=== PATIENT | male | born 1935 | race Caucasian/White ===

== ENCOUNTER → 2017-06-27 | Outpatient (CLI) | payer MEDICARE, OTHER ==
[2016-05-02 09:39] VITALS: BP 128/70
[~2017-06-27] MED LIST: ACTOS45 MG PO; AMITRIPTYLINE H10 M3 PO; CARDI-OMEGA1000 MG PO; FA-80.8 MG PO; GOOD SENSE ASPI81 M1 PO; HYZAAR 50-12.1 UDTAB PO; LIDODERM5% TP; METFORMIN500 MG PO; PARAFON FORTE500 MG PO; TENORMIN25 MG PO; TRIAMCINOLONE0.11 TP; ULTRAM50 MG PO
== END ==
LOC: LAB 11:51
DX: E10.3291 Type 1 diabetes mellitus with mild nonproliferative diabetic retinopathy without macular edema, right eye (principal)

== ENCOUNTER → 2017-07-12 | Outpatient (CLI) | payer MEDICARE, OTHER ==
[2016-05-02 09:39] VITALS: BP 128/70
[2017-07-12 10:45] LABS: EOS # 0.2 (0.04-0.40); HEMATOCRIT 38.4 % (42.0-52.0); HEMOGLOBIN 12.5 g/dL (13.5-18.0); LYMPH# 1.6 (1.50-4.00); MEAN CELL VOLUME 95 fl (78-100); MEAN CORPUSCULAR HEMOGLOBIN 31 pg (27-31); MEAN CORPUSCULAR HGB CONC 33 g/dL (33-37); MEAN PLATELET VOLUME 10.6 fl (7.4-10.4); MONO # 0.7 (0.20-0.80); NEU # 3.5 (1.40-6.50); PLATELET COUNT 126 K/mm3 (130-400); RED BLOOD COUNT 4.06 M/mm3 (4.20-5.60); RED CELL DISTRIBUTION WIDTH 14.4 % (11.5-14.5); WHITE BLOOD COUNT 6.1 K/mm3 (4.8-10.8)
[2017-07-12 11:42] LABS: ALBUMIN 3.9 g/dL (3.5-5.0); BUN/CREATININE RATIO 23.8 (6.0-26.0); CALCIUM 8.9 mg/dL (8.4-10.2); POTASSIUM 4.6 mmol/L (3.6-5.0); TOTAL BILIRUBIN 1.3 mg/dL (0.2-1.3); TOTAL PROTEIN 7.3 g/dL (6.3-8.2)
[2017-07-12 12:44] LABS: ERYTHROCYTE SEDIMENTATION RATE 23 mm/hr (0-20)
[2017-07-12 23:35] LABS: TESTOSTERONE 379 ng/dL (221-716)
== END ==
LOC: LAB 10:16
PROVIDERS: Internal Medicine
DX: Z12.5 Encounter for screening for malignant neoplasm of prostate (principal); Z12.11 Encounter for screening for malignant neoplasm of colon; E11.9 Type 2 diabetes mellitus without complications; I48.0 Paroxysmal atrial fibrillation; E78.5 Hyperlipidemia, unspecified; N52.9 Male erectile dysfunction, unspecified; Z88.8 Allergy status to other drugs, medicaments and biological substances

== ENCOUNTER → 2017-07-16 | Outpatient (CLI) | payer MEDICARE, OTHER ==
[2016-05-02 09:39] VITALS: BP 128/70
== END ==
LOC: RAD 09:00
DX: I77.811 Abdominal aortic ectasia (principal)

== ENCOUNTER → 2018-05-02 | Outpatient (CLI) | payer MEDICARE, OTHER ==
[2016-05-02 09:39] VITALS: BP 128/70
[2018-05-02 09:23] LABS: EOS # 0.5 (0.04-0.40); HEMATOCRIT 39.9 % (42.0-52.0); HEMOGLOBIN 13.2 g/dL (13.5-18.0); LYMPH# 2.4 (1.50-4.00); MEAN CELL VOLUME 94 fl (78-100); MEAN CORPUSCULAR HEMOGLOBIN 31 pg (27-31); MEAN CORPUSCULAR HGB CONC 33 g/dL (33-37); MEAN PLATELET VOLUME 10.6 fl (7.4-10.4); MONO # 0.8 (0.20-0.80); NEU # 3.3 (1.40-6.50); PLATELET COUNT 153 K/mm3 (130-400); RED BLOOD COUNT 4.23 M/mm3 (4.20-5.60); RED CELL DISTRIBUTION WIDTH 14.5 % (11.5-14.5)
[2018-05-02 09:30] LABS: ALBUMIN 4.5 g/dL (3.5-5.0); CALCIUM 9.2 mg/dL (8.4-10.2); POTASSIUM 4.9 mmol/L (3.6-5.0); TOTAL BILIRUBIN 1.2 mg/dL (0.2-1.3); TOTAL PROTEIN 8.3 g/dL (6.3-8.2)
[2018-05-02 09:53] LABS: EOS % 6.4 % (0.0-4.0)
[2018-05-02 10:27] LABS: ERYTHROCYTE SEDIMENTATION RATE 40 mm/hr (0-20)
[2018-05-03 00:26] LABS: TESTOSTERONE 235 ng/dL (221-716)
== END ==
LOC: LAB 09:05
PROVIDERS: Internal Medicine
DX: E04.1 Nontoxic single thyroid nodule (principal); D61.818 Other pancytopenia; E11.40 Type 2 diabetes mellitus with diabetic neuropathy, unspecified; K90.9 Intestinal malabsorption, unspecified; N52.9 Male erectile dysfunction, unspecified

== ENCOUNTER → 2018-05-16 | Outpatient (CLI) | payer MEDICARE, OTHER ==
[~2018-05-16] VITALS: Ht 177.8 cm; Wt 112.7 kg
[2018-05-16 13:45] VITALS: BP 122/70
[2018-05-16 14:26] LABS: URINE APPEARANCE CLEAR; URINE COLOR YELLOW
[2018-05-16 14:27] LABS: URINE BILIRUBIN NEGATIVE (NEGATIVE); URINE BLOOD TRACE (NEGATIVE); URINE GLUCOSE NEGATIVE (NEGATIVE); URINE KETONE NEGATIVE (NEGATIVE); URINE LEUKOCYTE ESTERASE NEGATIVE (NEGATIVE); URINE NITRATE NEGATIVE (NEGATIVE); URINE PROTEIN(semi-quant) TRACE mg/dL (NEGATIVE); URINE UROBILINOGEN NORMAL (NORMAL); URINE WBC 0-1 /hpf (0-3)
[2018-05-16 16:14] LABS: PARTIAL THROMBOPLASTIN TIME 26.5 SECONDS (21.0-32.0); PROTHROMBIN TIME 9.7 SECONDS (9.0-12.0)
[2018-05-17 00:28] LABS: LUTENIZING HORMONE 1.1 mIU/mL (0.6-12.1); PROLACTIN 7.7 ng/mL (3.5-19.4)
== END ==
LOC: AMSURD 13:05
PROVIDERS: Internal Medicine
DX: Z01.818 Encounter for other preprocedural examination (principal); J32.0 Chronic maxillary sinusitis; E29.1 Testicular hypofunction

== ENCOUNTER → 2018-08-06 | Outpatient (CLI) | payer MEDICARE, OTHER ==
[2018-05-16 13:45] VITALS: BP 122/70
[2018-08-06 15:45] LABS: EOS # 0.2 (0.04-0.40); HEMATOCRIT 43.5 % (42.0-52.0); HEMOGLOBIN 13.9 g/dL (13.5-18.0); LYMPH# 1.9 (1.50-4.00); MEAN CELL VOLUME 98 fl (78-100); MEAN CORPUSCULAR HEMOGLOBIN 31 pg (27-31); MEAN CORPUSCULAR HGB CONC 32 g/dL (33-37); MEAN PLATELET VOLUME 10.7 fl (7.4-10.4); MONO # 0.8 (0.20-0.80); NEU # 4.3 (1.40-6.50); PLATELET COUNT 105 K/mm3 (130-400); RED BLOOD COUNT 4.46 M/mm3 (4.20-5.60); RED CELL DISTRIBUTION WIDTH 15.6 % (11.5-14.5); WHITE BLOOD COUNT 7.3 K/mm3 (4.8-10.8)
[2018-08-06 16:21] LABS: ALBUMIN 3.8 g/dL (3.5-5.0); CALCIUM 8.4 mg/dL (8.4-10.2); POTASSIUM 4.3 mmol/L (3.6-5.0); TOTAL BILIRUBIN 0.9 mg/dL (0.2-1.3); TOTAL PROTEIN 7.2 g/dL (6.3-8.2)
== END ==
LOC: LAB 14:36
PROVIDERS: Internal Medicine
DX: E29.1 Testicular hypofunction (principal); E11.9 Type 2 diabetes mellitus without complications; D61.818 Other pancytopenia

== ENCOUNTER → 2018-08-18 | Outpatient (CLI) | payer MEDICARE, OTHER ==
[2018-05-16 13:45] VITALS: BP 122/70
[2018-08-18 15:46] LABS: ALBUMIN 4.2 g/dL (3.5-5.0); CALCIUM 8.8 mg/dL (8.4-10.2); POTASSIUM 4.3 mmol/L (3.6-5.0); TOTAL BILIRUBIN 1.1 mg/dL (0.2-1.3); TOTAL PROTEIN 8.1 g/dL (6.3-8.2)
== END ==
LOC: LAB 15:20
PROVIDERS: Internal Medicine
DX: Z01.812 Encounter for preprocedural laboratory examination (principal); E29.1 Testicular hypofunction; M15.0 Primary generalized (osteo)arthritis; E11.9 Type 2 diabetes mellitus without complications

== ENCOUNTER → 2018-08-29 | Outpatient (CLI) | payer MEDICARE, OTHER ==
[2018-05-16 13:45] VITALS: BP 122/70
[2018-08-29 12:19] LABS: CALCIUM 8.8 mg/dL (8.4-10.2)
== END ==
LOC: LAB 11:43
PROVIDERS: Internal Medicine
DX: E11.9 Type 2 diabetes mellitus without complications (principal)

== ENCOUNTER → 2019-02-16 | Outpatient (CLI) | payer MEDICARE, OTHER ==
[2018-05-16 13:45] VITALS: BP 122/70
[2019-02-16 15:39] LABS: ALBUMIN 3.9 g/dL (3.4-4.8)
[2019-02-16 15:40] LABS: POTASSIUM 3.1 mmol/L (3.5-5.1)
[2019-02-16 15:41] LABS: CALCIUM 8.9 mg/dL (8.3-10.5)
[2019-02-16 15:42] LABS: TOTAL PROTEIN 7.9 g/dL (6.2-8.1)
[2019-02-16 15:44] LABS: TOTAL BILIRUBIN 1.2 mg/dL (0.2-1.2)
[2019-02-16 17:23] LABS: HEMATOCRIT 48.4 % (42.0-52.0); HEMOGLOBIN 16.4 g/dL (13.5-18.0); MEAN CELL VOLUME 94 fl (78-100); MEAN CORPUSCULAR HEMOGLOBIN 32 pg (27-31); MEAN CORPUSCULAR HGB CONC 34 g/dL (33-37); MEAN PLATELET VOLUME 11.5 fl (7.4-10.4); PLATELET COUNT 108 K/mm3 (130-400); RED BLOOD COUNT 5.14 M/mm3 (4.20-5.60); RED CELL DISTRIBUTION WIDTH 14.4 % (11.5-14.5); WHITE BLOOD COUNT 6.2 K/mm3 (4.8-10.8)
[2019-02-16 17:37] LABS: BAND 2 % (0-10); LYMPHOCYTE 24 % (20-51); MONOCYTE 14 % (3-10); NEUTROPHILS 55 % (42-75)
== END ==
LOC: LAB 15:01
PROVIDERS: Internal Medicine
DX: Z01.818 Encounter for other preprocedural examination (principal); D61.818 Other pancytopenia; K90.9 Intestinal malabsorption, unspecified; E11.40 Type 2 diabetes mellitus with diabetic neuropathy, unspecified; M15.0 Primary generalized (osteo)arthritis

== ENCOUNTER → 2019-03-23 | Outpatient (CLI) | payer MEDICARE, OTHER ==
[2018-05-16 13:45] VITALS: BP 122/70
== END ==
LOC: MAMMO 07:15 → RAD 16:39
DX: N62 Hypertrophy of breast (principal); N63.0 Unspecified lump in unspecified breast

== ENCOUNTER → 2019-06-08 | Outpatient (CLI) | payer MEDICARE, OTHER ==
[2018-05-16 13:45] VITALS: BP 122/70
[2019-06-08 09:45] LABS: HEMATOCRIT 41.5 % (42.0-52.0); HEMOGLOBIN 13.8 g/dL (13.5-18.0); MEAN CELL VOLUME 98 fl (78-100); MEAN CORPUSCULAR HEMOGLOBIN 33 pg (27-31); MEAN CORPUSCULAR HGB CONC 33 g/dL (33-37); MEAN PLATELET VOLUME 10.4 fl (7.4-10.4); PLATELET COUNT 175 K/mm3 (130-400); RED BLOOD COUNT 4.22 M/mm3 (4.20-5.60)
[2019-06-08 09:54] LABS: ALBUMIN 3.7 g/dL (3.4-4.8); POTASSIUM 4.8 mmol/L (3.5-5.1)
[2019-06-08 09:55] LABS: CALCIUM 9.1 mg/dL (8.3-10.5)
[2019-06-08 09:56] LABS: TOTAL PROTEIN 7.8 g/dL (6.2-8.1)
[2019-06-08 09:58] LABS: TOTAL BILIRUBIN 0.8 mg/dL (0.2-1.2)
[2019-06-08 10:01] LABS: LYMPHOCYTE 24 % (20-51); MONOCYTE 9 % (3-10); NEUTROPHILS 65 % (42-75)
[2019-06-08 10:04] LABS: MAGNESIUM 2.5 mg/dL (1.60-2.60)
== END ==
LOC: LAB 09:27
PROVIDERS: Internal Medicine
DX: Z01.818 Encounter for other preprocedural examination (principal); E11.40 Type 2 diabetes mellitus with diabetic neuropathy, unspecified; K90.9 Intestinal malabsorption, unspecified; M15.0 Primary generalized (osteo)arthritis; D61.818 Other pancytopenia; R97.20 Elevated prostate specific antigen [PSA]

== ENCOUNTER → 2019-06-15 | Outpatient (CLI) | payer MEDICARE, OTHER ==
[2018-05-16 13:45] VITALS: BP 122/70
[2019-06-15 09:17] LABS: EOS # 0.2 (0.04-0.40); HEMATOCRIT 43.2 % (42.0-52.0); HEMOGLOBIN 14.3 g/dL (13.5-18.0); LYMPH# 1.8 (1.50-4.00); MEAN CELL VOLUME 98 fl (78-100); MEAN CORPUSCULAR HEMOGLOBIN 32 pg (27-31); MEAN CORPUSCULAR HGB CONC 33 g/dL (33-37); MONO # 0.8 (0.20-0.80); PLATELET COUNT 184 K/mm3 (130-400); RED BLOOD COUNT 4.42 M/mm3 (4.20-5.60); RED CELL DISTRIBUTION WIDTH 15.7 % (11.5-14.5); WHITE BLOOD COUNT 7.7 K/mm3 (4.8-10.8)
[2019-06-15 09:37] LABS: ALBUMIN 3.7 g/dL (3.4-4.8)
[2019-06-15 09:38] LABS: POTASSIUM 4.2 mmol/L (3.5-5.1)
[2019-06-15 09:39] LABS: CALCIUM 9.1 mg/dL (8.3-10.5)
[2019-06-15 09:40] LABS: TOTAL PROTEIN 7.8 g/dL (6.2-8.1)
[2019-06-15 09:42] LABS: TOTAL BILIRUBIN 0.6 mg/dL (0.2-1.2)
[2019-06-15 09:47] LABS: MAGNESIUM 1.77 mg/dL (1.60-2.60)
[2019-06-15 10:09] LABS: URINE APPEARANCE CLEAR; URINE BILIRUBIN NEGATIVE (NEGATIVE); URINE BLOOD 50 ery/uL (NEGATIVE); URINE COLOR YELLOW; URINE GLUCOSE NEGATIVE (NEGATIVE); URINE KETONE NEGATIVE (NEGATIVE); URINE LEUKOCYTE ESTERASE NEGATIVE (NEGATIVE); URINE MUCUS PRESENT (NOT PRESENT); URINE NITRATE NEGATIVE (NEGATIVE); URINE PROTEIN(semi-quant) TRACE mg/dL (NEGATIVE); URINE UROBILINOGEN NORMAL (NORMAL); URINE WBC 0-1 /hpf (0-3)
[2019-06-15 10:17] LABS: PROTHROMBIN TIME 10.5 SECONDS (9.0-12.0)
[2019-06-15 12:56] LABS: PARTIAL THROMBOPLASTIN TIME 25.5 SECONDS (21.0-32.0)
== END ==
LOC: AMSURD 09:00
PROVIDERS: Internal Medicine
DX: Z01.818 Encounter for other preprocedural examination (principal); J32.9 Chronic sinusitis, unspecified

== ENCOUNTER → 2019-06-16 | Outpatient (CLI) | payer MEDICARE, OTHER ==
[2018-05-16 13:45] VITALS: BP 122/70
[2019-06-16 14:50] LABS: POTASSIUM 4.3 mmol/L (3.5-5.1)
[2019-06-16 14:51] LABS: CALCIUM 9.1 mg/dL (8.3-10.5)
== END ==
LOC: LAB 14:26
PROVIDERS: Internal Medicine
DX: Z01.818 Encounter for other preprocedural examination (principal); E11.9 Type 2 diabetes mellitus without complications; I87.2 Venous insufficiency (chronic) (peripheral)

== ENCOUNTER → 2019-07-16 | Outpatient (CLI) | payer MEDICARE, OTHER ==
[2018-05-16 13:45] VITALS: BP 122/70
[2019-07-16 12:04] LABS: ALBUMIN 3.6 g/dL (3.4-4.8); POTASSIUM 4.5 mmol/L (3.5-5.1)
[2019-07-16 12:05] LABS: CALCIUM 8.4 mg/dL (8.3-10.5)
[2019-07-16 12:06] LABS: TOTAL PROTEIN 7.4 g/dL (6.2-8.1)
[2019-07-16 12:08] LABS: TOTAL BILIRUBIN 0.6 mg/dL (0.2-1.2)
== END ==
LOC: LAB 11:36
PROVIDERS: Internal Medicine
DX: E11.9 Type 2 diabetes mellitus without complications (principal); I87.2 Venous insufficiency (chronic) (peripheral)

== ENCOUNTER → 2019-09-14 | Outpatient (CLI) | payer MEDICARE, OTHER ==
[2018-05-16 13:45] VITALS: BP 122/70
[2019-09-14 16:29] LABS: BASO # 0.1 (0.02-0.10); EOS # 0.5 (0.04-0.40); HEMATOCRIT 43.3 % (42.0-52.0); HEMOGLOBIN 14.1 g/dL (13.5-18.0); LYMPH# 1.8 (1.50-4.00); MEAN CELL VOLUME 100 fl (78-100); MEAN CORPUSCULAR HEMOGLOBIN 33 pg (27-31); MEAN CORPUSCULAR HGB CONC 33 g/dL (33-37); MEAN PLATELET VOLUME 11.1 fl (7.4-10.4); MONO # 0.6 (0.20-0.80); NEU # 3.3 (1.40-6.50); PLATELET COUNT 109 K/mm3 (130-400); RED BLOOD COUNT 4.34 M/mm3 (4.20-5.60); RED CELL DISTRIBUTION WIDTH 13.8 % (11.5-14.5); WHITE BLOOD COUNT 6.2 K/mm3 (4.8-10.8)
[2019-09-14 16:30] LABS: EOS % 7.3 % (0.0-4.0)
[2019-09-14 16:31] LABS: ALBUMIN 3.8 g/dL (3.4-4.8)
[2019-09-14 16:32] LABS: POTASSIUM 4.3 mmol/L (3.5-5.1)
[2019-09-14 16:33] LABS: CALCIUM 8.7 mg/dL (8.3-10.5)
[2019-09-14 16:34] LABS: TOTAL PROTEIN 7.6 g/dL (6.2-8.1)
[2019-09-14 16:40] LABS: MAGNESIUM 1.42 mg/dL (1.60-2.60)
[2019-09-15 17:09] LABS: TESTOSTERONE 1283 ng/dL (221-716)
== END ==
LOC: LAB 11:35
PROVIDERS: Internal Medicine
DX: Z01.818 Encounter for other preprocedural examination (principal); D61.818 Other pancytopenia; E11.49 Type 2 diabetes mellitus with other diabetic neurological complication; K90.9 Intestinal malabsorption, unspecified; E04.1 Nontoxic single thyroid nodule; J32.9 Chronic sinusitis, unspecified; I87.2 Venous insufficiency (chronic) (peripheral); E29.1 Testicular hypofunction; R97.20 Elevated prostate specific antigen [PSA]

== ENCOUNTER → 2019-11-13 | Outpatient (CLI) | payer MEDICARE, OTHER ==
[2018-05-16 13:45] VITALS: BP 122/70
[2019-11-13 11:55] LABS: ALBUMIN 3.9 g/dL (3.4-4.8); POTASSIUM 3.5 mmol/L (3.5-5.1)
[2019-11-13 11:58] LABS: TOTAL PROTEIN 7.9 g/dL (6.2-8.1)
[2019-11-13 11:59] LABS: TOTAL BILIRUBIN 1.3 mg/dL (0.2-1.2)
== END ==
LOC: LAB 11:26
PROVIDERS: Internal Medicine
DX: E29.1 Testicular hypofunction (principal); E11.9 Type 2 diabetes mellitus without complications; I48.91 Unspecified atrial fibrillation

== ENCOUNTER → 2019-11-19 | Outpatient (CLI) | payer MEDICARE, OTHER ==
[2018-05-16 13:45] VITALS: BP 122/70
== END ==
LOC: RAD 11:42
DX: G31.9 Degenerative disease of nervous system, unspecified (principal); I67.82 Cerebral ischemia; I48.91 Unspecified atrial fibrillation; G47.00 Insomnia, unspecified

== ENCOUNTER → 2020-02-04 | Outpatient (CLI) | payer MEDICARE, OTHER ==
[2018-05-16 13:45] VITALS: BP 122/70
[2020-02-04 11:44] LABS: HEMATOCRIT 41.7 % (42.0-52.0); HEMOGLOBIN 14.1 g/dL (13.5-18.0); MEAN CELL VOLUME 96 fl (78-100); MEAN CORPUSCULAR HEMOGLOBIN 33 pg (27-31); MEAN CORPUSCULAR HGB CONC 34 g/dL (33-37); MEAN PLATELET VOLUME 10.5 fl (7.4-10.4); PLATELET COUNT 132 K/mm3 (130-400); RED BLOOD COUNT 4.34 M/mm3 (4.20-5.60); RED CELL DISTRIBUTION WIDTH 13.9 % (11.5-14.5); WHITE BLOOD COUNT 8.4 K/mm3 (4.8-10.8)
[2020-02-04 11:53] LABS: ALBUMIN 4.1 g/dL (3.4-4.8); POTASSIUM 3.3 mmol/L (3.5-5.1)
[2020-02-04 11:54] LABS: CALCIUM 9.2 mg/dL (8.3-10.5)
[2020-02-04 11:55] LABS: TOTAL PROTEIN 7.9 g/dL (6.2-8.1)
[2020-02-04 11:57] LABS: TOTAL BILIRUBIN 0.7 mg/dL (0.2-1.2)
[2020-02-04 12:03] LABS: MAGNESIUM 1.8 mg/dL (1.60-2.60)
[2020-02-04 12:09] LABS: LYMPHOCYTE 33 % (20-51); MONOCYTE 10 % (3-10); NEUTROPHILS 52 % (42-75)
[2020-02-04 23:49] LABS: TESTOSTERONE 1043 ng/dL (221-716)
== END ==
LOC: LAB 11:33
PROVIDERS: Internal Medicine
DX: Z01.818 Encounter for other preprocedural examination (principal); E11.9 Type 2 diabetes mellitus without complications; K90.9 Intestinal malabsorption, unspecified; M15.0 Primary generalized (osteo)arthritis; E29.1 Testicular hypofunction

== ENCOUNTER 2020-03-04 17:13 | Emergency (ER) | payer MEDICARE, OTHER ==
[2020-03-04 18:01] LABS: BASO # 0.1 (0.02-0.10); EOS # 0.5 (0.04-0.40); HEMATOCRIT 39.7 % (42.0-52.0); HEMOGLOBIN 13.3 g/dL (13.5-18.0); LYMPH# 1.9 (1.50-4.00); MEAN CELL VOLUME 96 fl (78-100); MEAN CORPUSCULAR HEMOGLOBIN 32 pg (27-31); MEAN CORPUSCULAR HGB CONC 34 g/dL (33-37); MEAN PLATELET VOLUME 10.6 fl (7.4-10.4); MONO # 0.8 (0.20-0.80); NEU # 3.5 (1.40-6.50); PLATELET COUNT 136 K/mm3 (130-400); RED BLOOD COUNT 4.12 M/mm3 (4.20-5.60); RED CELL DISTRIBUTION WIDTH 14.4 % (11.5-14.5); WHITE BLOOD COUNT 6.7 K/mm3 (4.8-10.8)
[2020-03-04 18:02] LABS: EOS % 7.1 % (0.0-4.0)
[2020-03-04 18:11] LABS: POTASSIUM 3.6 mmol/L (3.5-5.1)
[2020-03-04 18:12] LABS: CALCIUM 8.6 mg/dL (8.3-10.5)
[2020-03-04 18:32] LABS: URINE APPEARANCE CLEAR; URINE BILIRUBIN NEGATIVE (NEGATIVE); URINE BLOOD NEGATIVE (NEGATIVE); URINE COLOR YELLOW; URINE GLUCOSE NEGATIVE (NEGATIVE); URINE KETONE NEGATIVE (NEGATIVE); URINE LEUKOCYTE ESTERASE NEGATIVE (NEGATIVE); URINE MUCUS PRESENT (NOT PRESENT); URINE NITRATE NEGATIVE (NEGATIVE); URINE PROTEIN(semi-quant) 1+ mg/dL (NEGATIVE); URINE UROBILINOGEN NORMAL (NORMAL)
[2020-03-04 19:43] VITALS: BP 173/92
== END 2020-03-04 19:43 | disposition home or self-care (01) ==
LOC: ED 17:13
PROVIDERS: Family Medicine
DX: N13.9 Obstructive and reflux uropathy, unspecified (principal); E86.0 Dehydration; E11.22 Type 2 diabetes mellitus with diabetic chronic kidney disease; I12.9 Hypertensive chronic kidney disease with stage 1 through stage 4 chronic kidney disease, or unspecified chronic kidney disease; N18.30 Chronic kidney disease, stage 3 unspecified; F17.290 Nicotine dependence, other tobacco product, uncomplicated; Z90.79 Acquired absence of other genital organ(s); Z79.82 Long term (current) use of aspirin; Z79.84 Long term (current) use of oral hypoglycemic drugs

== ENCOUNTER → 2020-05-05 | Outpatient (CLI) | payer MEDICARE, OTHER ==
[2020-05-05 11:54] LABS: EOS # 0.4 (0.04-0.40); HEMATOCRIT 40.5 % (42.0-52.0); LYMPH# 1.6 (1.50-4.00); MEAN CELL VOLUME 101 fl (78-100); MEAN CORPUSCULAR HEMOGLOBIN 32 pg (27-31); MEAN CORPUSCULAR HGB CONC 32 g/dL (33-37); MONO # 0.8 (0.20-0.80); NEU # 3.7 (1.40-6.50); PLATELET COUNT 109 K/mm3 (130-400); RED BLOOD COUNT 4.03 M/mm3 (4.20-5.60); RED CELL DISTRIBUTION WIDTH 14.7 % (11.5-14.5); WHITE BLOOD COUNT 6.5 K/mm3 (4.8-10.8)
[2020-05-05 12:00] LABS: EOS % 6.3 % (0.0-4.0)
[2020-05-05 12:03] LABS: ALBUMIN 3.7 g/dL (3.4-4.8); POTASSIUM 4.4 mmol/L (3.5-5.1)
[2020-05-05 12:04] LABS: CALCIUM 8.8 mg/dL (8.3-10.5)
[2020-05-05 12:07] LABS: TOTAL BILIRUBIN 1.1 mg/dL (0.2-1.2)
[2020-05-05 12:12] LABS: MAGNESIUM 1.69 mg/dL (1.60-2.60)
== END ==
LOC: LAB 11:29
PROVIDERS: Internal Medicine
DX: E11.9 Type 2 diabetes mellitus without complications (principal); E78.5 Hyperlipidemia, unspecified; I48.0 Paroxysmal atrial fibrillation

== ENCOUNTER → 2020-10-17 | Outpatient (CLI) | payer MEDICARE, OTHER ==
[~2020-10-17] MED LIST changes: +ACETAMINOPHEN-H1 TA1 PO; +CEPHALEXIN500 M1 PO; +CYANOCOBAL1000 MCG/1 IM; +CYCLOBENZ5 MG PO; +ELIQUIS5 MG PO; +FISH OIL 1000MG1 CAP PO; +KLONOPIN 1MG1 MG PO; +LIDOCAINE PAIN1 EACH TP; +LOSARTAN POTASS50 M1 PO; +METFORMIN ER500 MG PO; +MS CONTIN 115 MG/TAB PO; +PHARMASSURE FO0.8 MG PO; +SERTRALINE50 MG PO; +SOTALOL HCL120 MG PO; +TESTOSTERO200 MG/1 M IM
[2020-10-17 11:39] LABS: BASO # 0.04 (0.02-0.10); EOS # 0.37 (0.04-0.40); EOS % 6.1 % (0.0-4.0); HEMATOCRIT 35.7 % (42.0-52.0); HEMOGLOBIN 11.9 g/dL (13.5-18.0); LYMPH# 1.64 (1.50-4.00); MEAN CELL VOLUME 97 fl (78-100); MEAN CORPUSCULAR HEMOGLOBIN 32 pg (27-31); MEAN CORPUSCULAR HGB CONC 33 g/dL (33-37); MEAN PLATELET VOLUME 10.9 fl (7.4-10.4); MONO # 0.76 (0.20-0.80); NEU # 3.27 (1.40-6.50); PLATELET COUNT 131 K/mm3 (130-400); RED BLOOD COUNT 3.68 M/mm3 (4.20-5.60); RED CELL DISTRIBUTION WIDTH 13.6 % (11.5-14.5); WHITE BLOOD COUNT 6.1 K/mm3 (4.8-10.8)
[2020-10-17 11:44] LABS: POTASSIUM 4.5 mmol/L (3.5-5.1)
[2020-10-17 11:45] LABS: ALBUMIN 3.9 g/dL (3.4-4.8)
[2020-10-17 11:46] LABS: CALCIUM 8.6 mg/dL (8.3-10.5)
[2020-10-17 11:47] LABS: TOTAL PROTEIN 7.5 g/dL (6.2-8.1)
[2020-10-17 11:49] LABS: TOTAL BILIRUBIN 0.8 mg/dL (0.2-1.2)
[2020-10-17 11:54] LABS: MAGNESIUM 1.74 mg/dL (1.60-2.60)
[2020-10-18 01:24] LABS: TESTOSTERONE 1124 ng/dL (221-716)
== END ==
LOC: LAB 11:12
PROVIDERS: Internal Medicine
DX: Z12.5 Encounter for screening for malignant neoplasm of prostate (principal); E11.9 Type 2 diabetes mellitus without complications; D64.9 Anemia, unspecified; E78.5 Hyperlipidemia, unspecified; E23.7 Disorder of pituitary gland, unspecified

== ENCOUNTER 2020-12-02 18:12 | Emergency (ER) | payer MEDICARE, OTHER ==
[~2020-12-02 18:12] MED LIST changes: -ACETAMINOPHEN-H1 TA1 PO; -CEPHALEXIN500 M1 PO; -CYANOCOBAL1000 MCG/1 IM; -CYCLOBENZ5 MG PO; -ELIQUIS5 MG PO; -FISH OIL 1000MG1 CAP PO; -KLONOPIN 1MG1 MG PO; -LIDOCAINE PAIN1 EACH TP; -LOSARTAN POTASS50 M1 PO; -METFORMIN ER500 MG PO; -MS CONTIN 115 MG/TAB PO; -PHARMASSURE FO0.8 MG PO; -SERTRALINE50 MG PO; -SOTALOL HCL120 MG PO; -TESTOSTERO200 MG/1 M IM
[2020-12-02] MEDS ORDERED: ACETAMINOPHEN-H1 TA1 PO (19:44)
[2020-12-02] MEDS ORDERED: MS CONTIN 115 MG/TAB PO (19:44)
[2020-12-02] MEDS ORDERED: SOTALOL HCL120 MG PO (19:45)
[2020-12-02] MEDS ORDERED: KLONOPIN 1MG1 MG PO (19:45)
[2020-12-02] MEDS ORDERED: ELIQUIS5 MG PO (19:46)
[2020-12-02] MEDS ORDERED: CYCLOBENZ5 MG PO (19:46)
[2020-12-02] MEDS ORDERED: METFORMIN ER500 MG PO (19:46)
[2020-12-02] MEDS ORDERED: SERTRALINE50 MG PO (19:46)
[2020-12-02] MEDS ORDERED: TESTOSTERO200 MG/1 M IM (19:47)
[2020-12-02 20:04] LABS: BASO # 0.04 (0.02-0.10); EOS # 0.44 (0.04-0.40); EOS % 6.7 % (0.0-4.0); HEMATOCRIT 37.7 % (42.0-52.0); HEMOGLOBIN 12.5 g/dL (13.5-18.0); LYMPH# 1.15 (1.50-4.00); MEAN CELL VOLUME 96 fl (78-100); MEAN CORPUSCULAR HEMOGLOBIN 32 pg (27-31); MEAN CORPUSCULAR HGB CONC 33 g/dL (33-37); MEAN PLATELET VOLUME 11.2 fl (7.4-10.4); MONO # 0.65 (0.20-0.80); NEU # 4.24 (1.40-6.50); PLATELET COUNT 107 K/mm3 (130-400); RED BLOOD COUNT 3.94 M/mm3 (4.20-5.60); RED CELL DISTRIBUTION WIDTH 13.6 % (11.5-14.5); WHITE BLOOD COUNT 6.5 K/mm3 (4.8-10.8)
[2020-12-02 20:24] VITALS: BP 168/99
== END 2020-12-02 20:24 | disposition home or self-care (01) ==
LOC: ED 18:12
PROVIDERS: Family Medicine
DX: K06.8 Other specified disorders of gingiva and edentulous alveolar ridge (principal); E11.22 Type 2 diabetes mellitus with diabetic chronic kidney disease; N18.9 Chronic kidney disease, unspecified; E86.0 Dehydration; K08.409 Partial loss of teeth, unspecified cause, unspecified class; I48.91 Unspecified atrial fibrillation; G89.29 Other chronic pain; M54.9 Dorsalgia, unspecified; E11.40 Type 2 diabetes mellitus with diabetic neuropathy, unspecified; Z88.6 Allergy status to analgesic agent; Z79.01 Long term (current) use of anticoagulants; Z79.84 Long term (current) use of oral hypoglycemic drugs

== ENCOUNTER → 2021-01-05 | Outpatient (CLI) | payer MEDICARE, OTHER ==
[~2021-01-05] MED LIST changes: +ACETAMINOPHEN-H1 TA1 PO; +CEPHALEXIN500 M1 PO; +CYANOCOBAL1000 MCG/1 IM; +CYCLOBENZ5 MG PO; +ELIQUIS5 MG PO; +FISH OIL 1000MG1 CAP PO; +KLONOPIN 1MG1 MG PO; +LIDOCAINE PAIN1 EACH TP; +LOSARTAN POTASS50 M1 PO; +METFORMIN ER500 MG PO; +MS CONTIN 115 MG/TAB PO; +PHARMASSURE FO0.8 MG PO; +SERTRALINE50 MG PO; +SOTALOL HCL120 MG PO; +TESTOSTERO200 MG/1 M IM
== END ==
LOC: LAB 17:13
DX: J02.9 Acute pharyngitis, unspecified (principal)

== ENCOUNTER 2021-02-08 18:07 | Observation (INO) | payer MEDICARE, OTHER ==
[~2021-02-08] VITALS: Ht 177.8 cm; Wt 103.6 kg
[~2021-02-08 18:07] MED LIST changes: -CEPHALEXIN500 M1 PO; -CYANOCOBAL1000 MCG/1 IM; -FISH OIL 1000MG1 CAP PO; -LIDOCAINE PAIN1 EACH TP; -LOSARTAN POTASS50 M1 PO; -PHARMASSURE FO0.8 MG PO
[2021-02-08 18:58] LABS: BASO # 0.03 (0.02-0.10); EOS % 1.5 % (0.0-4.0); HEMATOCRIT 39.2 % (42.0-52.0); HEMOGLOBIN 12.5 g/dL (13.5-18.0); LYMPH# 1.47 (1.50-4.00); MEAN CELL VOLUME 96 fl (78-100); MEAN CORPUSCULAR HEMOGLOBIN 31 pg (27-31); MEAN CORPUSCULAR HGB CONC 32 g/dL (33-37); MEAN PLATELET VOLUME 10.9 fl (7.4-10.4); MONO # 0.89 (0.20-0.80); NEU # 4.26 (1.40-6.50); PLATELET COUNT 140 K/mm3 (130-400); RED CELL DISTRIBUTION WIDTH 14.2 % (11.5-14.5); WHITE BLOOD COUNT 6.8 K/mm3 (4.8-10.8)
[2021-02-08 19:10] LABS: ALBUMIN 3.8 g/dL (3.4-4.8); POTASSIUM 4.8 mmol/L (3.5-5.1)
[2021-02-08 19:13] LABS: TOTAL PROTEIN 8.3 g/dL (6.2-8.1)
[2021-02-08 19:14] LABS: TOTAL BILIRUBIN 2.1 mg/dL (0.2-1.2)
[2021-02-08 19:35] LABS: PROTHROMBIN TIME 11.5 SECONDS (9.0-12.0)
[2021-02-08 19:57] LABS: URINE APPEARANCE HAZY; URINE BILIRUBIN NEGATIVE (NEGATIVE); URINE BLOOD 250 ery/uL (NEGATIVE); URINE COLOR YELLOW; URINE GLUCOSE NEGATIVE (NEGATIVE); URINE KETONE 1+ (NEGATIVE); URINE LEUKOCYTE ESTERASE NEGATIVE (NEGATIVE); URINE NITRATE NEGATIVE (NEGATIVE); URINE PROTEIN(semi-quant) 3+ mg/dL (NEGATIVE); URINE UROBILINOGEN NORMAL (NORMAL)
[2021-02-08 19:58] LABS: URINE MUCUS PRESENT (NOT PRESENT)
[2021-02-08 21:54] VITALS: BP 188/88
[2021-02-08 23:00] VITALS: BP 219/103
[2021-02-08 23:18] VITALS: BP 183/85
[2021-02-08 23:19] VITALS: BP 183/85
[2021-02-08 23:20] VITALS: BP 219/103
[2021-02-09] VITALS (12 sets, daily range): BP systolic 160–212; BP diastolic 72–97
[2021-02-09] MEDS ORDERED: PHARMASSURE FO0.8 MG PO (01:56)
[2021-02-09] MEDS ORDERED: LIDOCAINE PAIN1 EACH TP (01:57)
[2021-02-09] MEDS ORDERED: FISH OIL 1000MG1 CAP PO (01:58)
[2021-02-09] MEDS ORDERED: CYANOCOBAL1000 MCG/1 IM (02:00)
[2021-02-09 07:17] LABS: BASO # 0.02 (0.02-0.10); EOS # 0.09 (0.04-0.40); EOS % 1.4 % (0.0-4.0); HEMATOCRIT 35.9 % (42.0-52.0); HEMOGLOBIN 11.4 g/dL (13.5-18.0); LYMPH# 1.58 (1.50-4.00); MEAN CELL VOLUME 97 fl (78-100); MEAN CORPUSCULAR HEMOGLOBIN 31 pg (27-31); MEAN CORPUSCULAR HGB CONC 32 g/dL (33-37); MONO # 1.02 (0.20-0.80); NEU # 3.89 (1.40-6.50); PLATELET COUNT 123 K/mm3 (130-400); RED BLOOD COUNT 3.69 M/mm3 (4.20-5.60); RED CELL DISTRIBUTION WIDTH 14.2 % (11.5-14.5); WHITE BLOOD COUNT 6.6 K/mm3 (4.8-10.8)
[2021-02-09 07:57] LABS: ALBUMIN 3.3 g/dL (3.4-4.8); POTASSIUM 4.3 mmol/L (3.5-5.1)
[2021-02-09 07:58] LABS: CALCIUM 9.1 mg/dL (8.3-10.5)
[2021-02-09 07:59] LABS: TOTAL PROTEIN 7.2 g/dL (6.2-8.1)
[2021-02-09 08:01] LABS: TOTAL BILIRUBIN 1.8 mg/dL (0.2-1.2)
[2021-02-10 02:07] VITALS: BP 167/85
[2021-02-10 05:45] VITALS: BP 174/97
[2021-02-10 09:17] VITALS: BP 167/92
[2021-02-10 13:28] VITALS: BP 162/82
[2021-02-10] MEDS ORDERED: LOSARTAN POTASS50 M1 PO (15:33)
[2021-02-10] MEDS ORDERED: CEPHALEXIN500 M1 PO (15:35)
== END 2021-02-10 16:45 | disposition home health service (06) ==
LOC: ED 18:07 → MED/SURG 20:48
PROVIDERS: ADMIT Physician Assistant
DX: I16.1 Hypertensive emergency (principal); N18.9 Chronic kidney disease, unspecified; G89.29 Other chronic pain; M54.5 Low back pain; E86.0 Dehydration; E11.9 Type 2 diabetes mellitus without complications; R31.9 Hematuria, unspecified; I48.0 Paroxysmal atrial fibrillation; R35.0 Frequency of micturition; R32 Unspecified urinary incontinence; N39.0 Urinary tract infection, site not specified; G47.00 Insomnia, unspecified; E78.5 Hyperlipidemia, unspecified; I65.29 Occlusion and stenosis of unspecified carotid artery; E11.22 Type 2 diabetes mellitus with diabetic chronic kidney disease; F41.9 Anxiety disorder, unspecified; F17.220 Nicotine dependence, chewing tobacco, uncomplicated; Z91.14 Patient's other noncompliance with medication regimen; Z79.01 Long term (current) use of anticoagulants; Z90.89 Acquired absence of other organs
CPT/HCPCS: G0378; J0696; J2060; J2360; J7030; Q9967

== ENCOUNTER → 2024-08-21 | Outpatient (CLI) | payer MEDICARE ==
[~2024-08-21] VITALS: Ht 177.8 cm; Wt 103.6 kg
[~2024-08-21] MED LIST changes: +CEPHALEXIN500 M1 PO; +CYANOCOBAL1000 MCG/1 IM; +FISH OIL 1000MG1 CAP PO; +LIDOCAINE PAIN1 EACH TP; +LOSARTAN POTASS50 M1 PO; +PHARMASSURE FO0.8 MG PO
[2024-08-21 15:10] VITALS: BP 138/76
--- NOTE | 2024-08-21 15:11 | NUR ---
PT ARRIVES WITH AND SON. HERE TODAY FOR WOUND CARE TO LEFT FOREARM AND RT LOWER LEG. PT REFUSES WHEELCHAIR TODAY, BUT WALKING VERY SLOWLY. USED ROOM 5 FOR WOUND CARE DUE TO PT INABILITY TO WALK TO ROOM 207. PT SAT ON END OF BED WHILE NURSE SAT ON FLOOR TO CARE FOR LEG WOUNDS. SON STATES THAT PT WOULD NOT LET ANYONE CHANGE THE DRESSINGS AT HOME. NOTED THAT TUBIGRIP ON RLL HAD ROLLED DOWN AND MADE A SHARP INDENTION IN LEG. ABOVE THAT INDENTION THE UPPER CALF WAS VERY SWOLLEN. PT DENIES PAIN IN THAT AREA. REMOVED TUBIGRIP AND ALL DRESSINGS. SMALL AMOUNT OF BLOODY/SEROSANGUINOUS DRAINAGE NOTED ON OPTILOCK ON RLL. CLEANED RLL RUPTURED BLISTERS WITH HIBICLENS USING DEBRISOFT LOLLY AND STERILE WATER. PATTED DRY WITH 4X4'S. WOUND BEDS ARE BEEFY RED. APPLIED COLLAGEN TO THESE AREAS AND COVERED WITH MEPITEL. CLEANED LEFT FOREARM SKIN TEAR WITH VASHE AND PATTED DRY WITH 4X4'S. COVERED WITH MEPITEL, 4X4 GAUZE AND SECURED WITH SIZE E TUBIGRIP. THERE IS CURRENTLY NO DRAINAGE FROM THIS WOUND. LEFT ALL WOUNDS COVERED WITH MEPITEL. DID NOT WRAP RLL WITH SOFT ROLL OR TUBIGRIP DID NOT WANT TO IMPEDE ANY CIRCULATION AT THIS TIME. INSTRUCTED PT AND FAMILY TO INSPECT HIS RLL DAILY AND IF DRAINING TO APPLY THE OPTILOCK DRESSINGS AND WRAP WITH SOFT ROLL OR OSMIN BANDAGE THEY WERE DOING BEFORE. SUPPLIES SENT WITH PT. WILL RETURN ON SATURDAY AT 2PM FOR WOUND CLINIC.
== END ==
LOC: WOUND 13:57
DX: I83.019 Varicose veins of right lower extremity with ulcer of unspecified site (principal); L97.919 Non-pressure chronic ulcer of unspecified part of right lower leg with unspecified severity
CPT/HCPCS: 18895; 18897; A6021